=== PATIENT | female | born 1970 | race African-American/Black ===

== ENCOUNTER 2018-02-27 10:55 | Emergency (ER) | payer OTHER ==
[~2018-02-27] VITALS: Ht 162.6 cm; Wt 77.1 kg
[~2018-02-27 10:55] MED LIST: DIAZEPAM5 MG PO; NEXIUM40 M1 PO; SERTRALINE HYDR50 MG PO; VERAPAMIL HCL120 M1 PO
--- NOTE | 2018-02-27 11:31 | ED GI/GU/ABDOMINAL COMPLAINT ---
History of Present Illness General Chief Complaint: Abdominal Pain/Flank Pain Stated Complaint: BLOODY STOOL,ABDOMINAL PAIN Source: patient Exam Limitations: no limitations Vital Signs & Intake/Output Vital Signs & Intake/Output Vital Signs Date Time Temp Pulse Resp B/P B/P Pulse O2 O2 Flow FiO2 Mean Ox Delivery Rate 02/27 1432 98.0 68 18 116/76 99 Room Air 02/27 1305 98.0 77 17 122/79 100 Room Air 02/27 1159 99 Room Air 02/27 1103 98.6 76 18 127/84 98 Room Air Allergies Coded Allergies: No Known Allergies (12/31/15) Reconcile Medications Esomeprazole (Nexium) 40 MG CAPSULE. 1 CAP PO DAILY GI (Reported) Tramadol HCl 50 MG TABLET 1-2 TAB PO BIDP PRN pain Triage Note: 47 YO FEAMLE TO TRIAGE STATING SHE TOOK LINZESS TO "CLEAN HER BOWELS OUT" AND NOW SHE IS HAVING BRB WITH BOWEL MOVMENTS, C/O LOWER ABD PAIN. Triage Nurses Notes Reviewed? yes ? n Is pt currently ? No Onset: Abrupt Duration: day(s): Timing: recent history HPI: 47-year-old female comes into the emergency room complains of lower abdominal pain as well as bright red blood in her stool. Patient reports that she was constipated and took some epot-xce-xdvyyhi medication called Linzess. Patient reports that she's had a few bowel movements now with some gross blood noted. Not black. Denies any vomiting. She reports that she has some associated lower abdominal pain on the left side. Denies any fever chills. Denies any prior history of this. Has not had a colonoscopy. Comes in for further evaluation. Past History Travel History Traveled to [place] past 21 day No Medical History Any Pertinent Medical History? see below for history Neurological: MIGRAINES EENT: NONE Cardiovascular: NONE Respiratory: NONE Gastrointestinal: NONE Hepatic: NONE Renal: NONE Musculoskeletal: NONE Psychiatric: anxiety Endocrine: NONE Blood Disorders: NONE Cancer(s): NONE RN BSN/Reproductive: HYSTERECTOMY Surgical History Surgical History: hysterectomy Psychosocial History What is your primary language Bengali Tobacco Use: Never used Family History Hx Contributory? No Review of Systems Review of Systems Constitutional: Reports: no symptoms. EENTM: Reports: no symptoms. Respiratory: Reports: no symptoms. Cardiovascular: Reports: no symptoms. GI: Reports: see HPI. Genitourinary: Reports: no symptoms. Musculoskeletal: Reports: no symptoms. Skin: Reports: no symptoms. Neurological/Psychological: Reports: no symptoms. Hematologic/Endocrine: Reports: see HPI. Immunologic/Allergic: Reports: no symptoms. All Other Systems: Reviewed and Negative Physical Exam Physical Exam General Appearance: well developed/nourished, alert, awake Head: atraumatic Eyes: Bilateral: normal appearance. Ears, Nose, Throat, Mouth: hearing grossly normal, moist mucous membrane Neck: normal inspection Respiratory: no respiratory distress Gastrointestinal: soft, tenderness (llq) Rectal: heme negative stool Back: normal inspection Extremities: normal range of motion Neurologic/Psych: awake, alert Skin: intact Core Measures ACS in differential dx? No Sepsis Present: No Sepsis Focused Exam Completed? No Progress Differential Diagnosis: appendicitis, bowel obstruction, diverticulitis, ischemic bowel, inflamm bowel dis, UTI/pyelo Plan of Care: Orders Procedure Date/time Status URINALYSIS 02/27 113 Complete PARTIAL THROMBOPLASTIN TIME 02/27 113 Complete PROTHROMBIN TIME 02/27 113 Complete LACTIC ACID 02/27 113 Complete COMPREHENSIVE METABOLIC PANEL 02/27 113 Complete CBC WITHOUT DIFFERENTIAL 02/27 113 Complete TYPE & SCREEN (NOT X-MATCH) 02/27 113 Complete Laboratory Tests 02/27/18 1430: Lactic Acid Cancelled 02/27/18 1226: Anion Gap 10, Estimated GFR > 60, BUN/Creatinine Ratio 16.3, Glucose 99, Lactic Acid 1.1, Calcium 8.7, Total Bilirubin 0.5, AST 14, ALT 15, Alkaline Phosphatase 62, Total Protein 7.3, Albumin 3.9, Globulin 3.4, Albumin/Globulin Ratio 1.1 02/27/18 1220: PT 12.9 H, INR 1.18, APTT 29 02/27/18 1205: Urine Color YEL, Urine Clarity HAZY H, Urine pH 6.0, Ur Specific Black >= 1.030, Urine Protein TRACE H, Urine Ketones TRACE H, Urine Nitrite NEG, Urine Bilirubin NEG, Urine Urobilinogen 0.2, Ur Leukocyte Esterase NEG, Ur Microscopic SEDIMENT EXAMINED, Urine RBC 5-10 H, Urine WBC 5-10 H, Ur Epithelial Cells FEW , Urine Bacteria FEW H, Urine Mucus PACKD H, Urine Hemoglobin SMALL H, Urine Glucose NEG 02/27/18 1147: CBC w Diff NO MAN DIFF REQ, RBC 4.13 L, MCV 81.6, MCH 27.6, MCHC 33.9, RDW 17.0 H, MPV 7.5, Gran % 84.2 H, Lymphocytes % 13.7 L, Monocytes % 2.1, Eosinophils % 0, Basophils % 0, Absolute Granulocytes 9.4 H, Absolute Lymphocytes 1.5, Absolute Monocytes 0.2, Absolute Eosinophils 0, Absolute Basophils 0 Diagnostic Imaging: Viewed by Me: CT Scan. Discussed w/RAD: CT Scan. Radiology Impression: PATIENT: GLORIA ASCENCIO PRESENT AGE: 47 PATIENT ACCOUNT NO: [id number] : 72 LOCATION: [facility] ORDERING PHYSICIAN: Partha HIGGINBOTHAM SERVICE DATE: 02/27/18 EXAM TYPE: CAT - CT ABD & PELVIS W IV CONTRAST EXAMINATION: CT ABDOMEN AND PELVIS WITH CONTRAST CLINICAL INFORMATION: Left lower quadrant pain. Assess for diverticulitis. COMPARISON: None TECHNIQUE: Multidetector volumetric imaging was performed of the abdomen and pelvis following IV administration of 95 mL of Optiray 320 intravenous contrast. Sagittal and coronal reformatted images were obtained on the technologist's workstation. DLP: 285 mGy-cm FINDINGS: LUNG BASES: There is motion at the lung bases in addition to mild dependent change. The imaged heart and pericardium appear unremarkable. LIVER, GALLBLADDER, AND BILIARY TREE: The liver is normal in size, shape, and attenuation. No focal hepatic lesion or biliary ductal dilatation is present. The gallbladder is unremarkable with no evidence of radiopaque gallstones, gallbladder wall thickening, or obvious pericholecystic inflammatory changes. PANCREAS: Unremarkable. SPLEEN: Unremarkable. ADRENAL GLANDS: Unremarkable. KIDNEYS AND URETERS: The kidneys are normal in size, shape, and attenuation. No hydronephrosis, hydroureter, or calculi seen. No perinephric stranding. BLADDER: Under distended. Unremarkable. GASTROINTESTINAL TRACT: The colon is largely decompressed. No surrounding stranding. There are small/collapsed loops of small bowel in the central pelvis making it difficult to definitively identify an appendix. There is no inflammatory change surrounding the cecum. Loops of small bowel are elsewhere also normal in appearance. ABDOMINAL WALL: No significant hernia is appreciated. LYMPH NODES: Normal. VASCULAR: Unremarkable. PELVIC VISCERA: The uterus may be surgically absent. No adnexal masses. OSSEOUS STRUCTURES: No acute osseous abnormalities. There are 5 nonrib-bearing lumbar type vertebral bodies. No significant spondylosis. No scoliosis. IMPRESSION: No acute intra-abdominal or intrapelvic pathology is visualized. The distal colon appears collapsed without surrounding inflammatory change. DICTATED BY: Lisbeth Cook MD DATE/TIME DICTATED:02/27/181405 PRODUCTION CONTROLLER:[email or web address] DATE/TIME TRANSCRIBED:1405 CONFIDENTIAL, DO NOT COPY WITHOUT APPROPRIATE AUTHORIZATION. < Electronically signed in Other Vendor System> SIGNED BY: Lisbeth Cook MD 02/27/181415 Initial ED EKG: none Departure Departure Disposition: HOME OR SELF CARE Condition: Stable Clinical Impression Primary Impression: Rectal bleeding Secondary Impressions: Abdominal pain Referrals: Tavia ARCE,Forrest Escobar Patient Has No Primary Care Dr (PCP/Family) Additional Instructions: Follow-up with [place] urologist for colonoscopy. If bleeding persists return to the emergency room for repeat blood counts. Return if any other concerns. Take tramadol as needed for pain. Please go over all results of today's visit with your primary care doctor. Contact your primary care doctor to let them know you were here in the emergency room. There may be nonspecific findings which may not be related to your visit today here in the emergency room but may require further evaluation and chronic monitoring by your primary care doctor. If you had a laceration today the chance of foreign body always remains. You should follow-up with your primary care doctor for recheck in 3-5 days for a wound check. If you had an x-ray done there is a chance that a fracture could have been missed on initial read and you should follow-up with your primary care doctor for repeat x-rays if symptoms persist. If your blood pressure was elevated here in the emergency room please have rechecked by [facility] primary care doctor within the next 48. If you were prescribed a narcotic here in the emergency room or any type of controlled substances you're not allowed to drive while taking this medication or operate any type of heavy machinery. Narcotics can make you feel lightheaded dizziness nausea and can cause constipation. You may need to picking supervisor a stool softener. Thank you for choosing emergency room. Please return to the emergency room immediately if you have any other concerns worsening of symptoms. Departure Forms: Customer Survey General Discharge Information Prescriptions: Current Visit Scripts Tramadol HCl 1-2 TAB PO BIDP PRN pain #15 TAB Comments 02/27/2018 2:35:39 PM Patient clinically looks well. Patient is no apparent distress. Hemodynamically stable. Negative guaiac. No gross bloody bowel movements here. Patient needs follow-up for outpatient colonoscopy. No acute findings on CT scan. She understands and agrees with plan of care.
[2018-02-27 12:07] LABS: ABSOLUTE BASOPHIL COUNT 0 /CUMM (0.0-0.2); ABSOLUTE EOSINOPHIL COUNT 0 /CUMM (0.0-0.7); ABSOLUTE GRANULOCYTE CT 9.4 /CUMM (1.4-6.5); ABSOLUTE LYMPH COUNT 1.5 /CUMM (1.2-3.4); ABSOLUTE MONOCYTE COUNT 0.2 /CUMM (0.10-0.60); BASOPHIL % 0 % (0.0-2.0); EOSINOPHIL % 0 % (0-5); HEMATOCRIT 33.7 % (37-47); MEAN CORPUSCULAR HGB 27.6 PG (27.0-31.0); MEAN CORPUSCULAR HGB CONC 33.9 G/DL (33.0-37.0); MEAN CORPUSCULAR VOLUME 81.6 FL (81.0-99.0); MEAN PLATELET VOLUME 7.5 FL (7.4-10.4); PLATELET COUNT 305 /CUMM (130-400); RED BLOOD CELL CT 4.13 /CUMM (4.20-5.40); WHITE BLOOD CELL COUNT 11.1 /CUMM (4.8-10.8)
[2018-02-27 12:37] LABS: GRANULOCYTE % 84.2 % (42.2-75.2)
[2018-02-27 12:57] LABS: PT 12.9 SEC (9.4-12.5); PTT 29 SEC (25-37)
--- NOTE | 2018-02-27 14:16 | CT SCAN REPORT ---
EXAMINATION: CT ABDOMEN AND PELVIS WITH CONTRAST CLINICAL INFORMATION: Left lower quadrant pain. Assess for diverticulitis. COMPARISON: None TECHNIQUE: Multidetector volumetric imaging was performed of the abdomen and pelvis following IV administration of 95 mL of Optiray 320 intravenous contrast. Sagittal and coronal reformatted images were obtained on the technologist's workstation. DLP: 285 mGy-cm FINDINGS: LUNG BASES: There is motion at the lung bases in addition to mild dependent change. The imaged heart and pericardium appear unremarkable. LIVER, GALLBLADDER, AND BILIARY TREE: The liver is normal in size, shape, and attenuation. No focal hepatic lesion or biliary ductal dilatation is present. The gallbladder is unremarkable with no evidence of radiopaque gallstones, gallbladder wall thickening, or obvious pericholecystic inflammatory changes. PANCREAS: Unremarkable. SPLEEN: Unremarkable. ADRENAL GLANDS: Unremarkable. KIDNEYS AND URETERS: The kidneys are normal in size, shape, and attenuation. No hydronephrosis, hydroureter, or calculi seen. No perinephric stranding. BLADDER: Under distended. Unremarkable. GASTROINTESTINAL TRACT: The colon is largely decompressed. No surrounding stranding. There are small/collapsed loops of small bowel in the central pelvis making it difficult to definitively identify an appendix. There is no inflammatory change surrounding the cecum. Loops of small bowel are elsewhere also normal in appearance. ABDOMINAL WALL: No significant hernia is appreciated. LYMPH NODES: Normal. VASCULAR: Unremarkable. PELVIC VISCERA: The uterus may be surgically absent. No adnexal masses. OSSEOUS STRUCTURES: No acute osseous abnormalities. There are 5 nonrib-bearing lumbar type vertebral bodies. No significant spondylosis. No scoliosis. IMPRESSION: No acute intra-abdominal or intrapelvic pathology is visualized. The distal colon appears collapsed without surrounding inflammatory change.
[2018-02-27] MEDS ORDERED: TRAMADOL HCL50 M1 PO ×2 (14:29)
[2018-02-27 14:32] VITALS: BP 116/76
== END 2018-02-27 14:41 ==
LOC: ERH 10:55
PROVIDERS: Physician Assistant Medical
DX: K62.5 Hemorrhage of anus and rectum (principal)
CPT/HCPCS: 74177; 81001